=== PATIENT | female | born 1985 | race African-American/Black ===

== ENCOUNTER 2020-11-20 20:22 | Emergency (ER) | payer MEDICAID, OTHER ==
[~2020-11-20] VITALS: Ht 152.4 cm; Wt 55.0 kg
[2020-11-20] MEDS ORDERED: TETANUS, DIPHTHERIA, PERTUSSIS VAC/PF 0.5ML (>10YR OLD) IM ONE (21:00)
[2020-11-20] MEDS ORDERED: KETOROLAC 60MG/2ML VIAL IM ONE (21:00)
[2020-11-20 21:11] VITALS: BP 168/108
[2020-11-20] MEDS ORDERED: LIDO700A30 TP (21:20)
[2020-11-20] MEDS ORDERED: IBUP-2029 MT (21:20)
== END 2020-11-20 21:58 | disposition home or self-care (01) ==
LOC: ER 20:22
DX: M79.18 Myalgia, other site (principal); M25.512 Pain in left shoulder; D64.9 Anemia, unspecified; V43.52XA Car driver injured in collision with other type car in traffic accident, initial encounter; Y93.89 Activity, other specified; Y92.410 Unspecified street and highway as the place of occurrence of the external cause
CPT/HCPCS: 73030; 81025; 90471; 90715; 96372; 99284; J1885